=== PATIENT | female | born 1955 | race Caucasian/White ===

== ENCOUNTER 2022-01-20 07:22 | Outpatient (RCR) | payer BC, SELFPAY | END 2022-04-06 08:26 | disposition home or self-care (01) | LOC: ANHDMC 07:22 | PROVIDERS: PCP Family Medicine Sports Medicine; Visit Provider Internal Medicine Endocrinology, Diabetes & Metabolism | DX: E11.65 Type 2 diabetes mellitus with hyperglycemia (principal) | CPT/HCPCS: 99199 ==

== ENCOUNTER 2022-10-27 13:32 | Outpatient (CLI) | payer MEDICARE, SELFPAY ==
[2022-10-27 20:38] LABS: Free T4 Free Thyroxine 2.38 ng/mL (0.78-2.19)
== END 2022-10-27 13:33 | disposition home or self-care (01) ==
LOC: ANHWCLAB 13:34
PROVIDERS: PCP Family Medicine Sports Medicine; Visit Provider Internal Medicine Endocrinology, Diabetes & Metabolism
DX: E03.9 Hypothyroidism, unspecified (principal)
CPT/HCPCS: 36415; 84439; 84443

== ENCOUNTER 2023-11-04 13:27 | Outpatient (CLI) | payer MEDICARE, SELFPAY ==
[2023-11-07 11:33] LABS: Triiodothyronine T3 Free 2.8 pg/mL (2.3-4.2)
== END 2023-11-04 13:28 | disposition home or self-care (01) ==
PROVIDERS: Nurse Practitioner Family; PCP Family Medicine Sports Medicine; Visit Provider Family Medicine Sports Medicine
DX: E03.9 Hypothyroidism, unspecified (principal)
CPT/HCPCS: 36415; 84439; 84443; 84481